=== PATIENT | female | born 1980 | race Caucasian/White ===

== ENCOUNTER 2017-01-12 14:10 | Emergency (ER) | payer MEDICAID, OTHER ==
[2017-01-12 14:42] VITALS: BMI 26.4
--- NOTE | 2017-01-12 14:54 | OBHP ---
Datetime: 01/12/2017 14:48 IP Adm Impression: Term, intrauterine IP Chief Complaint Other: pelvic pressure IP Admit Plan: Observation/Evaluation Admit Comment, IP Provider: at 39weeks came with c/o ctxs and pelvic pressure from the the morn ing. pt staytes baby is moving but less,no lof,no vb. obhx primi pmh den med pnv all nkda psh den soch den ve /-3 a/p at 39weeks r/o labor/, r/o uti/dec fm ua cont dustin and efm cont close observation Pelvic Type - PN: Adequate Extremities - PN: Normal Abdomen - PN: Normal Back - PN: Normal Breast - PN: Normal Lungs - PN: Normal Heart - PN: Normal Thyroid - PN: Normal Neurologic - PN: Normal HEENT - PN: Normal General - PN: Normal FHR - Baseline A Provider: 130 Contraction Comments Provider: q1-4 Comments, ACOG Physical Exam: gravid,non tender ext no edema,no calf ten ve /-3 IP Hx Assessment: The History has been Reviewed and is Current EGA AdmitDate IP: 39.0 Vital Signs Provider: Reviewed; Within Normal Limits IP Chief Complaint: Uterine contractions NICHD Variability Prov Fetus A: Moderate 6-25bpm Dilatation, Provider: 1 Effacement, Provider: 50 Station, Provider: -3 Genitourinary Exam: Normal DTRs - PN: Normal
[2017-01-12 15:02] LABS: RBC URINE 2 /hpf (0-3); URINE BACTERIA OCC (<OCC); URINE BILIRUBIN NEGATIVE (NEGATIVE); URINE BLOOD NEGATIVE (NEGATIVE); URINE COLOR Yellow (YELLOW); URINE GLUCOSE (UA) 1+ mg/dL (Normal); URINE KETONE NEGATIVE (NEGATIVE); URINE LEUKOCYTE ESTERASE 1+ Leu/uL (Negative); URINE PROTEIN NEGATIVE (NEGATIVE); URINE UROBILINOGEN NORMAL mg/dL (0.2-1.0); WBC URINE 3 /hpf (0-5)
--- NOTE | 2017-01-12 15:55 | OBHP ---
Datetime: 01/12/2017 15:53 Admit Comment, IP Provider: pt examined at bed side ve /-3 feels the baby moving. occ ctxs ua neg plan dc home labor ins given po hyration f/u in clinic on FHR - Baseline A Provider: 130 Contraction Comments Provider: none NICHD Variability Prov Fetus A: Moderate 6-25bpm NICHD Accel Fetus A IP Provider: 15X15 FHR Category Provider Fetus A: Category I Dilatation, Provider: 1 Effacement, Provider: 50 Station, Provider: -3
--- NOTE | 2017-01-12 15:57 | OBDCSUM ---
Datetime: 01/12/2017 15:55 Discharged to, Provider: Home Follow up at, Provider: Disch Instr Diet: Regular Follow up in weeks, Provider: clinic Discharge Comment, Provider: dc home labor ins given po hyration f/u in clinic on Discharge Diagnosis Prov Other: 39wee nst pelvic pressure
--- NOTE | 2017-01-14 20:22 | OBPPN ---
Datetime: 01/14/2017 20:14 PP Pain Prov: Within normal limits PP Nausea Prov: Denies PP Flatus Prov: Yes PP BM Prov: No PP Breasts Prov: Normal PP Heart Prov: Normal PP Lungs Prov: Normal PP Abdomen/Uterus Prov: Normal PP Lochia Prov: Normal PP Vulva/Perineum Prov: Not Done PP CVA Tenderness Prov: Normal PP Extremities Prov: Normal PP C/S Incision Prov: Not Applicable PP Progress Prov: Normal PP Comments Phys Exam Prov: Skin: warm, dry, intact Abdomen: Soft. yan distended. fundus firm, mildly tender, mobile, at umbilicus. Mild to moderate l ochia rubra Extremities: no calf tenderness, cyanosis or edema All other systems reviewed and are negative PP Impression Prov: Normal progression PP Plan Prov: Continue present management PP Progress Note Prov: Patinet evaluated earlier today: received in room 459, sleeping; easily awake linus. Desires to breastfeed more; currnetly, more bottle. Denies dizziness, lightheadedness, palpitati ons. Ambulating and voiding without difficulty. P.E.: as above. WD in NAD. Awake, alert, oriented to time, person and place. Pleasant and cooperat florencia - PPD#1 H/H 9.3/29.2. Rh(+) Assessment: PPD#1 36 yo P1, SP . Afebrile, vital signs stable. Anemia noted; asymptomatic and h emodynamically stable. Clinically stable. Plan: 1) Continue present management with iron supplementation 2) Anticipate discharge home 01/15/17 Vital Signs Provider PP: Reviewed
== END 2017-01-12 15:55 | disposition home or self-care (01) ==
LOC: C.EROB 14:10
DX: O47.1 False labor at or after 37 completed weeks of gestation (principal); Z3A.39 39 weeks gestation of pregnancy

== ENCOUNTER 2017-01-13 01:43 | Inpatient (IN) | payer OTHER ==
[2017-01-12 14:42] VITALS: BMI 26.4
--- NOTE | 2017-01-13 02:16 | OBADHP ---
Datetime: 01/13/2017 02:12 Admit Comment, IP Provider: at 39.1weeks came with c/o ctcxs started in the afternoon, q 1-4 mi n, 04/05,no vb, lof,=fm obhx primi pmh den med pnv all nkda psh den och den ve /-1 a/p at 39week in active labor admit to l_d npo/ivf labs cont dustin and efm anticipate Pelvic Type - PN: Adequate Extremities - PN: Normal Abdomen - PN: Normal Back - PN: Normal Breast - PN: Normal Lungs - PN: Normal Heart - PN: Normal Thyroid - PN: Normal Neurologic - PN: Normal HEENT - PN: Normal General - PN: Normal FHR - Baseline A Provider: 130 Contraction Comments Provider: q1-3 Comments, ACOG Physical Exam: gravid,non tender ext no edema,no calf ten ve 7100/-1 IP Hx Assessment: The History has been Reviewed and is Current Vital Signs Provider: Reviewed; Within Normal Limits IP Chief Complaint: Uterine contractions NICHD Variability Prov Fetus A: Moderate 6-25bpm NICHD Accel Fetus A IP Provider: 15X15 FHR Category Provider Fetus A: Category I Dilatation, Provider: 7 Effacement, Provider: 100 Station, Provider: -1 Genitourinary Exam: Normal DTRs - PN: Normal EGA AdmitDate IP: 39.1 IP Adm Impression: Term, intrauterine ; Active labor IP Admit Plan: Admit to unit; Initiate labor protocol Datetime: 01/12/2017 14:48 IP Chief Complaint Other: pelvic pressure
[2017-01-13] MEDS ORDERED: Lactated Ringer's 1,000 ML IV SCH (02:30)
[2017-01-13 02:32] LABS: BASO % 0.2 % (0.0-2.0); HEMATOCRIT 35.4 % (34.0-47.0); LYMPH # 1.6 K/uL (1.0-4.3); LYMPH % 7.4 % (20.0-40.0); MEAN CELL VOLUME 83.7 fL (81.0-99.0); MEAN CORPUSCULAR HEMOGLOBIN 27.4 pg (27.0-31.0); MEAN CORPUSCULAR HGB CONC 32.7 g/dL (33.0-37.0); MEAN PLATELET VOLUME 10.7 fL (7.2-11.7); MONO # 0.6 K/uL (0.0-0.8); MONO % 2.7 % (0.0-10.0); PLATELET COUNT 197 K/uL (130-400); RED CELL DISTRIBUTION WIDTH 14.5 % (11.5-14.5)
[2017-01-13 02:40] LABS: CHLORIDE 107 mmol/L (98-107); POTASSIUM 3.8 mmol/L (3.6-5.2); RBC URINE 3 /hpf (0-3); SODIUM 139 mmol/L (132-148); URINE BACTERIA RARE (<OCC); URINE BILIRUBIN NEGATIVE (NEGATIVE); URINE BLOOD 1+ (NEGATIVE); URINE COLOR Amber (YELLOW); URINE GLUCOSE (UA) NORMAL (Normal); URINE KETONE 2+ mg/dL (NEGATIVE); URINE LEUKOCYTE ESTERASE TRACE Leu/uL (Negative); URINE PROTEIN 2+ mg/dL (NEGATIVE); URINE UROBILINOGEN NORMAL mg/dL (0.2-1.0); WBC URINE 4 /hpf (0-5)
[2017-01-13 02:42] LABS: GFR AFRICAN-AMERICAN > 60
[2017-01-13 02:43] LABS: ALB/GLOB RATIO 1.1 (1.0-2.1); ALKALINE PHOSPHATASE 204 U/L (38-126); ALT/SGPT 15 U/L (9-52); AST/SGOT 16 U/L (14-36); BILIRUBIN,TOTAL 0.5 mg/dL (0.2-1.3); BLOOD UREA NITROGEN 10 mg/dL (7-17); CALCIUM 9.2 mg/dl (8.6-10.4); CARBON DIOXIDE 19 mmol/L (22-30); GLUCOSE,RANDOM 123 mg/dL (65-105); TOTAL PROTEIN 7.1 g/dL (6.3-8.3)
[2017-01-13] MEDS ORDERED: Bupivacaine 0.125%/FentaNYL 200 ML EPI ONE (02:47)
[2017-01-13] MEDS ORDERED: Bupivacaine HCl 0.25% PF (10 ml) Inj ONE ×2 (03:11→06:40)
[2017-01-13 04:39] LABS: NEUTROPHIL 87 % (50-75); TOTAL CELLS COUNTED 100
--- NOTE | 2017-01-13 06:43 | OBPN ---
Datetime: 01/13/2017 06:40 IP Progress Impression: Normal progression of labor IP Procedures: Sterile Vag Exam Contraction Comments Provider: q1-4 FHR - Baseline A Provider: 130 IP Progress Note Comment: pt was seen at bed side ve fd/100/0 pt req pain. will give epidural topof ill start pushing late anticipate Vital Signs Provider: Reviewed; Within Normal Limits NICHD Accel Fetus A IP Provider: 15X15 FHR Category Provider Fetus A: Category I NICHD Variability Prov Fetus A: Moderate 6-25bpm Datetime: 01/13/2017 02:12 Dilatation, Provider: 7 Effacement, Provider: 100 Station, Provider: -1
[2017-01-13] MEDS ORDERED: Oxytocin 30 UNIT 30 UNITS/500 ML BAG IV ONE (07:25)
[2017-01-13] MEDS ORDERED: Lidocaine 2% Inj (20ml) ONE (08:46)
[2017-01-13] MEDS ORDERED: Benzocaine/Menthol 20%-0.5% Topical Spray (60 ml) TOP PRN (09:36)
[2017-01-13] MEDS ORDERED: Oxycodone/Acetaminophen 5/325 mg Tab PO PRN ×2 (09:36→09:51)
--- NOTE | 2017-01-13 09:50 | OBDS ---
DELIVERY PERSONNEL Delivery Doctor: kassidy Toll Bridge Operator: Yamil Mars RN Anesthesiologist: arnav MATERNAL INFORMATION Delivery Anesthesia: Epidural Medications in Delivery: pitocin 20 Estimated Blood Loss (ml): 400 Placenta Cultured: No Maternal Complications: None Provider Comments: Patient psihing.Maternal exhaustion noted.Right mediolateral episiotomy done. of a male infant fron JOAQUINA position.Body and shoulders delivered without difficulty.Cord clamped and c ut.Cord blood collected.Placenta spontaneously delivered.Left periurethral laceration repaired with 3 -0 chormic Right mediolateral episiotomy repaired with 2-0 chromic.Fundus firm.Patient stable .Apgars 9/9 at 1 and 5 min of life. LABOR SUMMARY EDC: 01/19/2017 00:00 No. Babies in Womb: 1 Attempted: No Labor Anesthesia: Epidural LABOR INFORMATION Onset of Labor: 01/12/2017 19:00 Complete Dilatation: 01/13/2017 04:16 Oxytocin: N/A Group B Beta Strep: Negative Steroids Given: None Reason Steroids Not Administered: Not Applicable MEMBRANES Membranes Rupture Method: Spontaneous Rupture of Membranes: 01/13/2017 03:55 Length of Rupture (hrs): 5.20 Amniotic Fluid Color: Clear Amniotic Fluid Amount: Moderate Amniotic Fluid Odor: Normal STAGES OF LABOR Stage 1 hrs: 9 Stage 1 min: 16 Stage 2 hrs: 4 Stage 2 min: 51 Stage 3 hrs: 0 Stage 3 min: 8 Total Time in Labor hrs: 14 Total Time in Labor min: 15 VAGINAL DELIVERY Episiotomy: Right Mediolateral Laceration Extension: First Degree Laceration Type: Periurethral Laceration Repair: Yes Laceration Repair Note: right mediolateral episiotomy repaired with 2-0 chormic Left periurethral laceration repaired with 3-0 chromic Initial Vag Sponge Count: 20 Final Vag Sponge Count: 20 Initial Vag Sharps Count: 2 Final Vag Sharps Count: 2 Sponge Count Correct: Yes; Vaginal Sweep Performed Sharps Count Correct: Yes BABY A INFORMATION Delivery Date/Time: 01/13/2017 09:07 Method of Delivery: Vaginal Born in Route : No (Annotations: Data stored by [employer] on behalf of user) : N/A Forceps: N/A Vacuum Extraction: N/A Shoulder Dystocia : No SHOULDER DYSTOCIA BABY A Infant Delivery Date/Time: 01/13/2017 09:07 PRESENTATION/POSITION BABY A Presentation: Cephalic Cephalic Presentation: Vertex Vertex Position: Left Occipital Anterior Breech Presentation: N/A (Annotations: Data stored by [employer] on behalf of user) PLACENTA INFORMATION BABY A Placenta Delivery Time : 01/13/2017 09:15 Placenta Method of Delivery: Spontaneous Placenta Status: Delivered SCORES BABY A Heart Rate 1 min: >100 bpm Resp Effort 1 min: Good Cry Reflex Irritability 1 min: Cough or Sneeze or Pulls Away Muscle Tone 1 min: Active Motion Color 1 min: Body [place], Extremities Blue SCORE 1 MIN: 9 Heart Rate 5 min: >100 bpm Resp Effort 5 min: Good Cry Reflex Irritability 5 min: Cough or Sneeze or Pulls Away Muscle Tone 5 min: Active Motion Color 5 min: Body [place], Extremities Blue SCORE 5 MIN: 9 INFANT INFORMATION BABY A Gestational Age at Delivery: 39.0 Gestational Status: Term Outcome : Liveborn Condition : Stable Infant Sex: Male IDENTIFICATION/MEDS BABY A ID Band Number: [id number] ID Band Location: Left Leg; Left Arm Sensor Applied: Yes Sensor Number: [id number] Sensor Location : Cord Clamp WEIGHT/LENGTH BABY A Infant Birthweight (gms): 3035 Infant Weight (lb): 6 Weight (oz): 11 Length Inches: 19.50 (Annotations: Data stored by [facility] on behalf of user) Length cms: 49.5 CORD INFORMATION BABY A No. Cord Vessels: 3 Nuchal Cord : N/A Cord Blood Taken: Yes Infant Suction: Mouth; Nose ASSESSMENT BABY A Infant Complications: None Physical Findings at Delivery: Within Normal Limits Respirations: Appears Normal Miner Placer/ALS Called : No Infant Care By: dr miller Transferred To: Remains with Mother
[2017-01-13] MEDS: Multiple Vitamins Tab PO SCH (11:39)
[2017-01-14 07:57] LABS: EOS # 0.1 K/uL (0.0-0.7); MEAN CORPUSCULAR HGB CONC 31.9 g/dL (33.0-37.0); MONO # 1.3 K/uL (0.0-0.8)
[2017-01-14 08:14] LABS: BASO % 0.1 % (0.0-2.0); EOS % 0.4 % (0.0-4.0); HEMATOCRIT 29.2 % (34.0-47.0); LYMPH # 4.1 K/uL (1.0-4.3); LYMPH % 19.4 % (20.0-40.0); MEAN CORPUSCULAR HEMOGLOBIN 27.1 pg (27.0-31.0); MEAN PLATELET VOLUME 10.5 fL (7.2-11.7); MONO % 6.1 % (0.0-10.0); RED CELL DISTRIBUTION WIDTH 14.9 % (11.5-14.5); WHITE BLOOD COUNT 21.2 K/uL (4.8-10.8)
[2017-01-14 08:48] VITALS: O2SAT 97
[2017-01-14] MEDS: Multiple Vitamins Tab PO SCH (10:14)
[2017-01-15 00:18] VITALS: BP 98/64; PULSE 79; RESP 20; TEMP 97.9
[2017-01-15] MEDS: Multiple Vitamins Tab PO SCH (10:25)
--- NOTE | 2017-01-15 12:32 | OBPPN ---
Datetime: 01/15/2017 12:31 PP Pain Prov: Within normal limits PP Nausea Prov: Denies PP Flatus Prov: Yes PP Breasts Prov: Normal PP Heart Prov: Normal PP Lungs Prov: Normal PP Abdomen/Uterus Prov: Normal PP Vulva/Perineum Prov: Normal PP CVA Tenderness Prov: Normal PP Extremities Prov: Normal PP C/S Incision Prov: Not Applicable PP Progress Prov: Normal PP Impression Prov: Normal progression PP Plan Prov: Discharge PP Progress Note Prov: S-patient reports adequate pain control. Denies nausea, vomiting, headache, c hest pain, shortness of breath.Ambulating and voiding without any difficulty. O-VSS Afebrile Fundus firm and below umbilicus Extremities no calf tenderness A/P Patient s/p vaginal delivery PPD 2 doingw ell.anemia noted on labs -discharge today -follow up in clinic in 6 weeks -continue iron Vital Signs Provider PP: Reviewed; Within Normal Limits
--- NOTE | 2017-01-15 12:34 | OBDCSUM ---
Datetime: 01/15/2017 12:12 Discharged to, Provider: Home Follow up at, Provider: [facility] Disch Instr Activity: Normal activity; May Shower Disch Instr Diet: Regular Discharge Diet restrict Prov: none Discharge Instructions, Provider: Routine instructions given Discharge Diagnosis, Provider: Term Delivered Discharge Time: 01/15/2017 12:12 Follow up in weeks, Provider: 6 wks Disch Referrals: None Disch Activity Restrictions: No lifting; No sexual activity; Nothing in vagina - [place], tampon s, douche Discharge Comment, Provider: go to er if you have fever, pain, severe pain, heavy bleeding or any ot her problems Discharge Diagnosis Prov Other: s/p vaginal delivery Datetime: 01/12/2017 15:55 Discharge Time: 01/15/2017 12:11
== END 2017-01-15 15:30 | disposition home or self-care (01) | DRG 376 ==
LOC: C.EROB 01:43 → C.4D 02:15 → C.4M 10:55
PROVIDERS: ADMIT Obstetrics & Gynecology; ATTEND Obstetrics & Gynecology
PROC: 10E0XZZ Delivery of Products of Conception, External Approach (ICD-10-PCS; principal; 2017-01-13)
PROC: 0HQ9XZZ Repair Perineum Skin, External Approach (ICD-10-PCS; 2017-01-13)
DX: O90.81 Anemia of the puerperium (principal); O09.513 Supervision of elderly primigravida, third trimester; Z3A.39 39 weeks gestation of pregnancy; O75.81 Maternal exhaustion complicating labor and delivery; Z37.0 Single live birth; O70.0 First degree perineal laceration during delivery

== ENCOUNTER 2017-09-30 08:07 | Emergency (ER) | payer OTHER ==
[2017-09-30 08:07] VITALS: BMI 26.4
--- NOTE | 2017-09-30 09:10 | RAD ---
PROCEDURE: CHEST RADIOGRAPH, 1 VIEW HISTORY: chest pain COMPARISON: None available. FINDINGS: LUNGS: Clear. PLEURA: No pneumothorax or pleural fluid seen. CARDIOVASCULAR: Normal. OSSEOUS STRUCTURES: No significant abnormalities. VISUALIZED UPPER ABDOMEN: Normal. OTHER FINDINGS: None. IMPRESSION: No active disease.
[2017-09-30 09:13] LABS: BASO # 0.1 K/uL (0.0-0.2); BASO % 0.9 % (0.0-2.0); EOS # 0.1 K/uL (0.0-0.7); EOS % 0.6 % (0.0-4.0); HEMOGLOBIN 12.5 g/dL (11.0-16.0); LYMPH # 2.2 K/uL (1.0-4.3); MEAN CELL VOLUME 82.1 fL (81.0-99.0); MEAN CORPUSCULAR HEMOGLOBIN 27.4 pg (27.0-31.0); MEAN CORPUSCULAR HGB CONC 33.3 g/dL (33.0-37.0); MEAN PLATELET VOLUME 9.8 fL (7.2-11.7); MONO # 0.6 K/uL (0.0-0.8); MONO % 4.9 % (0.0-10.0); NEUT # 9.1 K/uL (1.8-7.0); NEUT % 75.6 % (50.0-75.0); RBC 4.58 Mil/uL (3.80-5.20); RED CELL DISTRIBUTION WIDTH 14.3 % (11.5-14.5); WHITE BLOOD COUNT 12.1 K/uL (4.8-10.8)
[2017-09-30 09:19] LABS: HCG,QUALITATIVE URINE NEGATIVE (NEGATIVE)
[2017-09-30 09:26] LABS: ALB/GLOB RATIO 1.2 (1.0-2.1); ALBUMIN 4.1 g/dL (3.5-5.0); ALT/SGPT 22 U/L (9-52); AST/SGOT 21 U/L (14-36); BLOOD UREA NITROGEN 10 mg/dL (7-17); GFR AFRICAN-AMERICAN > 60; GFR NON-AFRICAN AMERICAN > 60
[2017-09-30 09:30] LABS: SQUAMOUS EPITHIAL 18 /hpf (0-5); URINE BACTERIA RARE (<OCC); URINE BILIRUBIN NEGATIVE (NEGATIVE); URINE BLOOD 1+ (NEGATIVE); URINE CLARITY Hazy (Clear); URINE COLOR Yellow (YELLOW); URINE GLUCOSE (UA) NORMAL (Normal); URINE LEUKOCYTE ESTERASE 3+ Leu/uL (Negative); URINE PROTEIN NEGATIVE (NEGATIVE); URINE UROBILINOGEN NORMAL mg/dL (0.2-1.0)
[2017-09-30 09:37] LABS: CK-MB < 0.22 ng/mL (0.0-3.38)
[2017-09-30 11:13] LABS: CK-MB 0.22 ng/mL (0.0-3.38)
[2017-09-30] MEDS ORDERED: Naproxen 550 mg Tab PO STA (11:27)
--- NOTE | 2017-09-30 11:38 | C.PDOC ---
History Of Present Illness <Carol Skinner - Last Filed: 09/30/17 15:23> <Jc Guadalupe M - Last Filed: 10/02/17 08:01> Ghada Felix is a 37 year old female, with no significant past medical history, who presents to the emergency department complaining of left upper back pain and left sided chest pain onset since this morning. Patient states pain is worst with movement of her left arm and deep breaths. She recently traveled from [place] x2 weeks ago. She denies any shortness of breath, nausea, vomit, diarrhea, cough, fever or chills. No further medical complaints. PMD: None provided. (Carol Skinner) History Per: Patient History/Exam Limitations: no limitations Onset/Duration Of Symptoms: Hrs (this morning ) Current Symptoms Are (Timing): Still Present Associated Symptoms: denies: Nausea, Dyspnea Exacerbating Factors: Movement (of left arm), Deep Breathing <Carol Skinner - Last Filed: 09/30/17 15:23> <Jc Guadalupe M - Last Filed: 10/02/17 08:01> Time Seen by Provider: 09/30/17 08:21 Chief Complaint (Nursing): Chest Pain Past Medical History Reviewed: Historical Data, Nursing Documentation, Vital Signs - Medical History PMH: No Chronic Diseases Surgical History: No Surg Hx Family History: States: Unknown Family Hx - Social History Hx Tobacco Use: No Hx Alcohol Use: No Hx Substance Use: No - Immunization History Hx Tetanus Toxoid Vaccination: No Hx Influenza Vaccination: No Hx Pneumococcal Vaccination: No <Carol Skinner - Last Filed: 09/30/17 15:23> Vital Signs: Last Vital Signs Temp 98.1 F 09/30/17 11:51 Pulse 84 09/30/17 11:51 Resp 20 09/30/17 11:51 BP 109/78 09/30/17 11:51 Pulse Ox 98 09/30/17 15:40 - [facility] Procedures DELIVERY OF PRODUCTS OF CONCEPTION, EXTERNAL APPROACH (01/13/17) REPAIR PERINEUM SKIN, EXTERNAL APPROACH (01/13/17) Review Of Systems Except As Marked, All Systems Reviewed And Found Negative. Cardiovascular: Positive for: Chest Pain (left sided) Musculoskeletal: Positive for: Back Pain (left upper) <Carol Skinner - Last Filed: 09/30/17 15:23> Physical Exam - Physical Exam Appears: Other (anxious) Skin: Normal Color, Warm, Dry, No Rash Head: Atraumatic, Normacephalic Eye(s): bilateral: Normal Inspection, PERRL, EOMI Neck: Normal ROM Cardiovascular: Rhythm Regular, Other (tachycardic) Respiratory: Normal Breath Sounds, No Wheezing Gastrointestinal/Abdominal: Normal Exam, Soft, No Tenderness Back: Paraspinal Tenderness (mildly tender to left upper thoracic paraspinal) Extremity: Normal ROM, No Pedal Edema, No Calf Tenderness, No Deformity, No Swelling Neurological/Psych: Oriented x3 <Carol Skinner - Last Filed: 09/30/17 15:23> ED Course And Treatment - Laboratory Results Result Diagrams: 09/30/17 09:04 09/30/17 09:04 ECG Rhythm: Sinus Rhythm (normal) Interpretation Of ECG: Normal axis, No acute ST changes. Rate From EC O2 Sat by Pulse Oximetry: 98 (RA) Pulse Ox Interpretation: Normal Progress Note: Initial Impression: Chest wall pain. Initial Plan: EKG, CK-MB, CMP, Creatine phosphokinase, Leigh Ann Panel, Troponin I, CBC w/ differential, D Dimer, Chest one view [RAD], Anaprox DS 550 mg PO, Flexeril 10 mg PO, Morphine 2 mg IVP, HCG qualitative urine, Urinalysis. 09:09 CXR. FINDINGS: LUNGS: Clear. PLEURA: No pneumothorax or pleural fluid seen. CARDIOVASCULAR: Normal. OSSEOUS STRUCTURES: No significant abnormalities. VISUALIZED UPPER ABDOMEN: Normal. OTHER FINDINGS: None. IMPRESSION: No active disease. - Blood work came back normal. -Patient states he feels better. Pt will be discharged home. <Carol Skinner - Last Filed: 09/30/17 15:23> - Laboratory Results Result Diagrams: 09/30/17 09:04 09/30/17 09:04 <Jc Guadalupe - Last Filed: 10/02/17 08:01> Disposition Counseled Patient/Family Regarding: Studies Performed, Diagnosis, Need For Followup, Rx Given - Disposition Disposition Time: 11:30 <Carol Skinner - Last Filed: 09/30/17 15:23> <Jc Guadalupe - Last Filed: 10/02/17 08:01> - Disposition Referrals: [facility] [Outside] Disposition: HOME/ ROUTINE Condition: STABLE Additional Instructions: FOLLOW UP WITH YOUR DOCTOR IN 1-2 DAYS USE MEDICATIONS DIRECTED RETURN TO ER IF SYMPTOMS WORSEN Prescriptions: Cyclobenzaprine [Flexeril] 10 mg PO BID PRN #15 tab PRN Reason: Muscle Spasm Naproxen 375 mg PO BID PRN #20 tablet PRN Reason: pain Instructions: Costochondritis Forms: txtr (Palauan) Print Language: UZBEK - Clinical Impression Clinical Impression: Chest wall pain - Scribe Statement The provider has reviewed the documentation as recorded by the Scribe <Carol Skinner - Last Filed: 09/30/17 15:23> <Jc Guadalupe - Last Filed: 10/02/17 08:01> - Scribe Statement Elan Khan (Carol Skinner) Addendum <Carol Skinner - Last Filed: 09/30/17 15:23> <Jc Guadalupe - Last Filed: 10/02/17 08:01> Addendum: 10/02/17 08:01 I did not take part in the care of this patient. (Jc Guadalupe)
[2017-09-30] MEDS ORDERED: Naproxen 550 mg Tab PO ONE (11:39)
[2017-09-30 11:52] VITALS: BP 109/78; PULSE 84; RESP 20; TEMP 98.1
[2017-09-30 15:27] VITALS: O2SAT 98
--- NOTE | 2017-10-02 11:00 | CARD ---
APPROVED REPORT EKG Measurement Heart [id number] AL [id number] <Conclusion> Normal sinus rhythm with sinus arrhythmia Normal ECG
== END 2017-09-30 11:57 | disposition home or self-care (01) ==
LOC: C.ER 08:07
DX: R07.89 Other chest pain (principal)
CPT/HCPCS: 71045; 80053; 81001; 82550; 82553; 84484; 84703; 85025; 85378; 96374; 99285; J2270